=== PATIENT | male | born 1965 | race Caucasian/White ===

== ENCOUNTER 2019-04-10 10:11 | Outpatient (CLI) | payer OTHER | END 2019-04-10 10:12 | disposition critical access hospital (66) | LOC: EMS 10:11 | PROVIDERS: ATTEND Surgery | DX: R55 Syncope and collapse (principal) | CPT/HCPCS: A0425; A0429 ==

== ENCOUNTER 2019-04-10 10:31 | Emergency (ER) | payer OTHER ==
--- NOTE | 2019-04-10 11:02 | ED Physician Documentation ---
PD HPI SYNCOPE - Stated complaint Stated Complaint: NEAR SYNCOPE - Chief complaint Chief Complaint: Cardiac - History obtained from History obtained from: Patient - History of Present Illness Witnessed: Witnessed Timing - onset: How many hours ago (1-2) Duration: Minutes (5) Preceding symptoms: Abdominal pain (he was working out at gym doing crunches and had abrupt onset of right inguinal pain/cramping. He says it hurt well and then he started to feel lightheaded, sweaty, and pale. He got up and felt like he might faint. Rested and still felt sweaty and weak. The inguinal pain improved but he was still weak feeling for about 5 minutes. He then felt back to normal. No chest pain nor abd pain subsequently.) Associated symptoms: Dyspnea, Nausea / vomiting (nausea but no vomiting), Abdominal pain. No: Headache Contributing factors: Noxious stimulae (onset of symptoms started with cramping right inguinal pain while doing crunches in the gym.). No: Decreased PO intake Similar symptoms before: Has not had sx before Recently seen: Not recently seen Review of Systems Constitutional: denies: Fever Nose: denies: Rhinorrhea / runny nose, Congestion Throat: denies: Sore throat Cardiac: denies: Palpitations, Pedal edema, Calf pain Respiratory: denies: Cough GI: reports: Nausea. denies: Abdominal Pain, Vomiting Neurologic: reports: Near syncope. denies: Syncope, Altered mental status, Headache PD PAST MEDICAL HISTORY - Past Medical History Cardiovascular: None Respiratory: None Neuro: CVA Endocrine/Autoimmune: None - Living Situation Living Situation: reports: With spouse/s.o. Living Arrangement: reports: At home PD ED PE NORMAL - Vitals Vital signs reviewed: Yes - General General: Alert and oriented X 3, No acute distress, Well developed/nourished - Neck Neck: Supple, no meningeal sign, No adenopathy - Cardiac Cardiac: RRR, No murmur - Respiratory Respiratory: Clear bilaterally - Abdomen Abdomen: Normal bowel sounds, Soft, Non tender, Non distended, Other (no inguinal tenderness, hernia, nor nodes. ) - Back Back: No CVA TTP - Derm Derm: Normal color, Warm and dry - Extremities Extremities: No tenderness to palpate, Normal ROM s pain, No edema, No calf tenderness / cord - Neuro Neuro: Alert and oriented X 3, physician asst 2-12 intact, No motor deficit, No sensory deficit, Normal speech Eye Opening: Spontaneous Motor: Obeys Commands Verbal: Oriented GCS Score: 15 - Psych Psych: Normal mood, Normal affect Results - Vitals Vitals: Vital Signs - 24 hr 04/10/19 04/10/19 10:50 11:52 Temperature 36.4 C L Heart Rate 72 74 Respiratory 18 14 Rate Blood Pressure 131/79 H 151/91 H O2 Saturation 99 100 Oxygen O2 Source Room air - EKG (time done) 11:02 Rate: Rate (enter#) (73) Rhythm: NSR [place]: Normal Intervals: Normal AL Ischemia: Normal ST segments. No: ST elevation c/w ischemia, ST depression - Labs Labs: Laboratory Tests 04/10/19 04/10/19 04/10/19 11:10 11:10 11:10 WBC 10.5 RBC 5.24 Hgb 15.2 Hct 45.5 MCV 86.8 MCH 29.0 MCHC 33.4 RDW 12.8 Plt Count 249 MPV 9.9 Neut # (Auto) 8.5 H Lymph # (Auto) 1.2 L [place] # (Auto) 0.5 Eos # (Auto) 0.2 Baso # (Auto) 0.1 Absolute Nucleated RBC 0.00 Nucleated RBC % 0.0 Sodium 139 Potassium 3.4 L Chloride 100 L Carbon Dioxide 29 Anion Gap 10.0 BUN 15 Creatinine 1.2 Estimated GFR (MDRD) 63 L Glucose 156 H Calcium 9.3 Total Bilirubin 0.7 AST 25 ALT 39 Alkaline Phosphatase 73 Troponin I High Sens 3.3 Total Protein 7.3 Albumin 4.3 Globulin 3.0 Albumin/Globulin Ratio 1.4 Lipase 46 Urine Color Urine Clarity Urine pH Ur Specific Stella Urine Protein Urine Glucose (UA) Urine Ketones Urine Occult Blood Urine Nitrite Urine Bilirubin Urine Urobilinogen Ur Leukocyte Esterase Ur Microscopic Review Urine Culture Comments 04/10/19 11:44 WBC RBC Hgb Hct MCV MCH MCHC RDW Plt Count MPV Neut # (Auto) Lymph # (Auto) [place] # (Auto) Eos # (Auto) Baso # (Auto) Absolute Nucleated RBC Nucleated RBC % Sodium Potassium Chloride Carbon Dioxide Anion Gap BUN Creatinine Estimated GFR (MDRD) Glucose Calcium Total Bilirubin AST ALT Alkaline Phosphatase Troponin I High Sens Total Protein Albumin Globulin Albumin/Globulin Ratio Lipase Urine Color YELLOW Urine Clarity CLEAR Urine pH 6.0 Ur Specific [place] 1.010 Urine Protein NEGATIVE Urine Glucose (UA) NEGATIVE Urine Ketones NEGATIVE Urine Occult Blood NEGATIVE Urine Nitrite NEGATIVE Urine Bilirubin NEGATIVE Urine Urobilinogen 0.2 (NORMAL) Ur Leukocyte Esterase NEGATIVE Ur Microscopic Review NOT INDICATED Urine Culture Comments NOT INDICATED - Rads (name of study) chest xray Radiology: Prelim report reviewed, See rad report (normal) PD MEDICAL DECISION MAKING - ED course Complexity details: considered differential (sounds likely a vasovagal event triggered by the inguinal pain, presume muscle spasm as it does not hurt now and not tender. ), d/w patient Departure - Departure Disposition: Home, Self Care Clinical Impression: Lower abdominal pain of unknown etiology, Vasovagal near syncope Condition: Stable Record reviewed to determine appropriate education?: Yes Instructions: ED Near Syncope Vasovagal Follow-Up: VINEET VAAC MD [Primary Care Provider] - Comments: No signs of serious cause any of the near fainting. Not sure the cause of the pain that you had while working out. It may been a muscle spasm. The most likely cause of your other symptoms was a vasovagal episode related to the pain. Rest today and stay well-hydrated. Recheck if recurrent episodes of lightheadedness in the near future. Otherwise normal activity resuming tomorrow. Discharge Date/Time: 04/10/19 13:12
[2019-04-10 11:16] LABS: BASOPHILS # (AUTO) 0.1 10^3/uL (0.0-0.1); BASOPHILS % (AUTO) 0.5 %; EOSINOPHILS # (AUTO) 0.2 10^3/uL (0.0-0.7); EOSINOPHILS % (AUTO) 1.4 %; HGB - HEMOGLOBIN 15.2 g/dL (14.0-18.0); LYMPHOCYTES # (AUTO) 1.2 10^3/uL (1.5-3.5); LYMPHOCYTES % (AUTO) 11.3 %; MEAN CORPUSCULAR HGB CONC 33.4 g/dL (32.0-36.0); MEAN CORPUSCULAR VOLUME 86.8 fL (80.0-94.0); MEAN PLATELET VOLUME 9.9 fL (7.4-11.4); MONOCYTES # (AUTO) 0.5 10^3/uL (0.0-1.0); MONOCYTES % (AUTO) 4.8 %; NEUTROPHILS # (AUTO) 8.5 10^3/uL (1.5-6.6); NEUTROPHILS % (AUTO) 81.5 %; PLT - PLATELET COUNT 249 10^3/uL (130-450); RED BLOOD COUNT 5.24 10^6/uL (4.70-6.10); RED CELL DISTRIBUTION WIDTH 12.8 % (12.0-15.0); WHITE BLOOD COUNT 10.5 x10^3/uL (4.8-10.8)
[2019-04-10 11:36] LABS: ALBUMIN 4.3 g/dL (3.2-5.5); ALBUMIN/GLOBULIN RATIO 1.4 (1.0-2.2); BILIRUBIN,TOTAL 0.7 mg/dL (0.2-1.0); CALCIUM 9.3 mg/dL (8.5-10.3); CREATININE 1.2 mg/dL (0.6-1.2); TOTAL PROTEIN 7.3 g/dL (6.7-8.2)
[2019-04-10 11:56] LABS: BILIRUBIN,URINE NEGATIVE (NEGATIVE); CLARITY,URINE CLEAR (CLEAR); GLUCOSE, URINE (UA) NEGATIVE (NEGATIVE); KETONES,URINE (UA) NEGATIVE (NEGATIVE); LEUKOCYTE ESTERASE, URINE NEGATIVE (NEGATIVE); NITRITE,URINE NEGATIVE (NEGATIVE); OCCULT BLOOD,URINE NEGATIVE (NEGATIVE); PROTEIN,URINE NEGATIVE (NEGATIVE); UROBILINOGEN,URINE 0.2 (NORMAL) E.U./dL (NORMAL)
[2019-04-10 12:00] VITALS: BP 151/91
--- NOTE | 2019-04-10 12:04 | XRAY Report ---
Reason: chest pain Procedure Date: 04/10/2019 Accession Number: [id number] / [id number] Procedure: XR - Chest 1 View X-Ray CPT Code: 55417 FULL RESULT: EXAM: CHEST RADIOGRAPHY EXAM DATE: 04/10/2019 11:27 AM. CLINICAL HISTORY: Chest pain. COMPARISON: None. TECHNIQUE: 1 view. FINDINGS: Lungs/Pleura: No focal opacities evident. No pleural effusion. No pneumothorax. Mediastinum: Within exam limitations, the cardiomediastinal contour is normal. Other: None. IMPRESSION: Normal single view chest. RADIA
== END 2019-04-10 13:12 | disposition home or self-care (01) ==
LOC: EDUNIT# → ED 10:31
DX: R55 Syncope and collapse (principal); R10.31 Right lower quadrant pain; R11.0 Nausea
CPT/HCPCS: 36415; 71045; 80053; 81001; 81003; 83690; 84484; 85025; 87086; 93005; 99284

== ENCOUNTER 2021-10-28 02:16 | Outpatient (CLI) | payer OTHER | END 2021-10-28 02:17 | disposition critical access hospital (66) | LOC: EMS 02:16 | DX: R55 Syncope and collapse (principal) | CPT/HCPCS: A0425; A0427 ==

== ENCOUNTER 2021-10-28 02:31 | Emergency (ER) | payer OTHER ==
[2021-10-28] MEDS ORDERED: SODIUM CHLORIDE 0.9% 1,000 ML IV STA (02:51)
[2021-10-28 02:55] LABS: BASOPHILS # (AUTO) 0.1 10^3/uL (0.0-0.1); BASOPHILS % (AUTO) 0.6 %; EOSINOPHILS # (AUTO) 0.4 10^3/uL (0.0-0.7); EOSINOPHILS % (AUTO) 3.2 %; HGB - HEMOGLOBIN 14.9 g/dL (14.0-18.0); LYMPHOCYTES # (AUTO) 4.4 10^3/uL (1.5-3.5); LYMPHOCYTES % (AUTO) 34.3 %; MEAN CORPUSCULAR HEMOGLOBIN 29.6 pg (27.0-31.0); MEAN CORPUSCULAR HGB CONC 34.7 g/dL (32.0-36.0); MEAN CORPUSCULAR VOLUME 85.5 fL (80.0-94.0); MEAN PLATELET VOLUME 9.9 fL (7.4-11.4); MONOCYTES # (AUTO) 0.8 10^3/uL (0.0-1.0); NEUTROPHILS # (AUTO) 7.1 10^3/uL (1.5-6.6); NEUTROPHILS % (AUTO) 55.6 %; PLT - PLATELET COUNT 301 10^3/uL (130-450); RED BLOOD COUNT 5.03 10^6/uL (4.70-6.10); RED CELL DISTRIBUTION WIDTH 12.7 % (12.0-15.0); WHITE BLOOD COUNT 12.8 x10^3/uL (4.8-10.8)
[2021-10-28 03:08] LABS: ALBUMIN 3.8 g/dL (3.2-5.5); ALBUMIN/GLOBULIN RATIO 1.4 (1.0-2.2); ALKALINE PHOSPHATASE 66 IU/L (42-121); ALT ALANINE AMINOTRANSFERASE 30 IU/L (10-60); AST ASPARTATE AMINOTRANSFERASE 22 IU/L (10-42); BILIRUBIN,TOTAL 0.8 mg/dL (0.2-1.0); BUN - BLOOD UREA NITROGEN 19 mg/dL (6-20); CALCIUM 8.4 mg/dL (8.5-10.3); CARBON DIOXIDE - CO2 23 mmol/L (21-32); CHLORIDE 100 mmol/L (101-111); CREATININE 1.5 mg/dL (0.6-1.2); ETOH - ETHANOL < 5.0 mg/dL; GFR - MDRD 48 (>89); GLUCOSE 188 mg/dL (70-100); LIPASE 38 U/L (22-51); MAGNESIUM 1.7 mg/dL (1.7-2.8); POTASSIUM 3.2 mmol/L (3.5-5.0); SODIUM 136 mmol/L (135-145); TOTAL PROTEIN 6.5 g/dL (6.7-8.2)
--- NOTE | 2021-10-28 03:15 | ED Physician Documentation ---
History of Present Illness - Stated complaint Stated Complaint: SYNCOPE - Chief complaint Chief Complaint: Neuro - History obtained from History obtained from: Patient, EMS - Additonal information Additional information: Patient is a 56-year-old male presenting for evaluation after a syncopal episode this evening. He had smoked marijuana with his and was outside smoking a cigarette. He was sitting in a chair when he had the feeling of lightheadedness as if he had become too high. He then reportedly had a syncopal episode that lasted less than 1 minute.When patient came to he initially recalls not knowing who his was but a few seconds later was able to identify her. Per EMS, the reported possible seizure-like activity and patient reports losing control of his bladder during the episode.There was no reported head injury. Patient deniesAlcohol or other drug use. He reports occasional marijuana use and denies that the marijuana he use this evening was from a new supplier, or batch. Patient denies recently feeling ill. He denies headache, chest pain, difficulty breathing, abdominal pain. He did have 1 episode of emesis after this episode. Review of Systems Constitutional: denies: Fever Nose: denies: Congestion Cardiac: denies: Chest pain / pressure, Palpitations Respiratory: denies: Dyspnea, Cough GI: reports: Vomiting. denies: Abdominal Pain : denies: Dysuria Skin: denies: Rash Musculoskeletal: denies: Back pain Neurologic: reports: Syncope. denies: Head injury PD PAST MEDICAL HISTORY - Past Medical History Past Medical History: Yes Cardiovascular: Hypertension Respiratory: None Neuro: CVA Endocrine/Autoimmune: None - Past Surgical History Past Surgical History: No - Present Medications Home Medications: Ambulatory Orders Medication Instructions Recorded Confirmed Cetirizine HCl [Allergy] 10 mg PO DAILY 10/28/21 10/28/21 hydroCHLOROthiazide [Hydrodiuril] 25 mg PO DAILY 10/28/21 10/28/21 - Allergies Allergies/Adverse Reactions: Allergies Allergy/AdvReac Type Severity Reaction Status Date / Time Penicillins Allergy Edema Verified 10/28/21 02:45 Fish Containing Products AdvReac Emesis Verified 10/28/21 02:46 - Social History Does the pt smoke?: No Smoking Status: Never smoker Does the pt drink ETOH?: Yes Does the pt have substance abuse?: No - Immunizations Immunizations are current?: No - POLST Patient has POLST: No PD ED PE NORMAL - General General: Alert and oriented X 3, No acute distress, Well developed/nourished - HEENT HEENT: Atraumatic, PERRL, EOMI, Moist mucous membranes, Pharynx benign - Neck Neck: Supple, no meningeal sign, C-Spine cleared by NEXUS criteria - Cardiac Cardiac: RRR, No murmur, Strong equal pulses - Respiratory Respiratory: No respiratory distress, Clear bilaterally - Abdomen Abdomen: Normal bowel sounds, Soft, Non tender - Derm Derm: Normal color, No rash - Extremities Extremities: No edema - Neuro Neuro: Alert and oriented X 3, pail bailer 2-12 intact, No motor deficit, No sensory deficit, Normal speech Eye Opening: Spontaneous Motor: Obeys Commands Verbal: Oriented GCS Score: 15 - Psych Psych: Normal mood, Normal affect Results - Vitals Vitals: Vital Signs - 24 hr 10/28/21 10/28/21 10/28/21 02:30 02:49 03:14 Temperature 35.7 C L Heart Rate 81 80 78 Respiratory 13 17 17 Rate Blood Pressure 109/66 112/80 110/81 H O2 Saturation 96 96 96 10/28/21 10/28/21 10/28/21 03:32 03:56 04:18 Temperature 36.3 C L Heart Rate 87 84 78 Respiratory 14 17 12 Rate Blood Pressure 117/84 H 117/84 H 124/80 O2 Saturation 98 99 99 10/28/21 10/28/21 05:29 05:30 Temperature 36.1 C L Heart Rate 77 88 Respiratory 18 16 Rate Blood Pressure 134/80 H 132/80 H O2 Saturation 94 97 Oxygen O2 Source Room air - EKG (time done) 0242 Rate: Rate (enter#) (78) Rhythm: NSR Intervals: Other (QTC 492) Ischemia: No: ST elevation c/w ischemia - Labs Labs: Laboratory Tests 10/28/21 10/28/21 10/28/21 02:27 02:27 02:27 WBC 12.8 H RBC 5.03 Hgb 14.9 Hct 43.0 MCV 85.5 MCH 29.6 MCHC 34.7 RDW 12.7 Plt Count 301 MPV 9.9 Neut # (Auto) 7.1 H Lymph # (Auto) 4.4 H [place] # (Auto) 0.8 Eos # (Auto) 0.4 Baso # (Auto) 0.1 Absolute Nucleated RBC 0.00 Nucleated RBC % 0.0 Sodium 136 Potassium 3.2 L Chloride 100 L Carbon Dioxide 23 Anion Gap 13.0 BUN 19 Creatinine 1.5 H Estimated GFR (MDRD) 48 L Glucose 188 H Calcium 8.4 L Magnesium 1.7 Total Bilirubin 0.8 AST 22 ALT 30 Alkaline Phosphatase 66 Troponin I High Sens 3.3 Total Protein 6.5 L Albumin 3.8 Globulin 2.7 Albumin/Globulin Ratio 1.4 Lipase 38 Ethyl Alcohol < 5.0 10/28/21 05:05 WBC RBC Hgb Hct MCV MCH MCHC RDW Plt Count MPV Neut # (Auto) Lymph # (Auto) [place] # (Auto) Eos # (Auto) Baso # (Auto) Absolute Nucleated RBC Nucleated RBC % Sodium Potassium Chloride Carbon Dioxide Anion Gap BUN Creatinine Estimated GFR (MDRD) Glucose Calcium Magnesium Total Bilirubin AST ALT Alkaline Phosphatase Troponin I High Sens 2.9 Total Protein Albumin Globulin Albumin/Globulin Ratio Lipase Ethyl Alcohol PD MEDICAL DECISION MAKING - ED course Complexity details: reviewed results, re-evaluated patient, d/w patient, d/w family ED course: 0345 - Patient's is now at the bedside. She reports that they were sitting on the porch smoking when she noticed that he had his head laid back as if he was sleeping. She tried to wake him up and was not able to she reports that he was snoringAnd taking deep breaths. She tried to shake him to wake him up and it took approximately 1 minute to awake him.She denies witnessing any seizure- like activity. She reported that she was shaking the patient but did not see any shaking movements from the patient on his own. Patient evaluated after a syncopal episode. Initial history was unclear and there was a description of possible seizure episode therefore a head CT was obtained. Head CT is negative for bleed or mass. However after further conversation with patient's I do not feel that the episode this evening truly suggests a seizure. Patient's EKG demonstrates a sinus rhythm with no other signs of arrhythmia. 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 Labs reviewed with mild hypokalemia. Troponin negative x2. Patient remained symptom-free in the emergency department.Based on the [place] syncope rule patient is considered low risk for syncope and [facility] Patient is aware of return precautionsAnd is ambulatory at discharge. Departure - Departure Disposition: 01 Home, Self Care Clinical Impression: Syncope Qualifiers: Syncope type: unspecified Qualified Code(s): R55 - Syncope and collapse Condition: Stable Instructions: ED Fainting Unkn Cause Comments: Sriram strong were evaluated after a fainting episode. The exact cause of your episode is unclear at this time. After talking further with your I do not think you had a true seizure event. However I do think you need very close follow-up with your primary care doctor. Please avoid any mind altering anton bstances such as alcohol or marijuana until you are seen for follow-up. Please continue to stay hydrated and get plenty of rest over the next few days. If anytime you have any recurrent episodes, develop new symptoms such as chest pain or difficulty breathing or have any concerns please return to the emergency department. Discharge Date/Time: 10/28/21 05:51
[2021-10-28] MEDS ORDERED: POTASSIUM CHLORIDE 20 MEQ TABLET PO STA (05:06)
[2021-10-28 05:51] VITALS: BP 132/80
--- NOTE | 2021-10-28 07:46 | CT Report ---
PROCEDURE: HEAD WO INDICATIONS: Possible seizure TECHNIQUE: Noncontrast 4.5 mm thick angled axial sections acquired from the foramen magnum to the vertex. For r adiation dose reduction, the following was used: automated exposure control, adjustment of mA and/or kV according to patient size. COMPARISON: None. FINDINGS: Image quality: Excellent. CSF spaces: Basal cisterns are patent. No extra-axial fluid collections. Ventricles are normal in size and shape. Brain: No midline shift. No intracranial masses or hemorrhage. Mcmullen-white matter interface is norm al. Skull and face: Calvarium and visualized facial bones are intact, without suspicious lesions. Sinuses: Visualized sinuses and mastoids are clear. IMPRESSION: No acute intracranial disease process. Reviewed by: Marta Marquez MD, PhD on 10/28/2021 7:45 AM PDT Approved by: Marta Marquez MD, PhD on 10/28/2021 7:45 AM PDT Station ID: [id number]
--- NOTE | 2021-10-28 07:47 | XRAY Report ---
PROCEDURE: Chest 1 View X-Ray INDICATIONS: syncope TECHNIQUE: One view of the chest was acquired. COMPARISON: 04/10/2019. FINDINGS: Surgical changes and devices: None. Lungs and pleura: No pleural effusions or pneumothorax. Increased opacification the left lung base. Mediastinum: Mediastinal contours appear normal. Heart size is normal. Bones and chest wall: No suspicious bony lesions. Overlying soft tissues appear unremarkable. IMPRESSION: Left basilar atelectasis versus pneumonia. Reviewed by: Marta Marquez MD, PhD on 10/28/2021 7:46 AM PDT Approved by: Marta Marquez MD, PhD on 10/28/2021 7:46 AM PDT Station ID: [id number]
== END 2021-10-28 05:51 | disposition home or self-care (01) ==
LOC: EDUNIT# → ED 02:31
DX: R55 Syncope and collapse (principal)
CPT/HCPCS: 36415; 70450; 71045; 80053; 80320; 83690; 83735; 84484; 85025; 93005; 96360; 99284; A9270

== ENCOUNTER 2021-11-23 07:04 | Outpatient (CLI) | payer OTHER ==
--- NOTE | 2021-11-23 08:10 | CT Report ---
PROCEDURE: HEAD WO INDICATIONS: HIST OF TIA TECHNIQUE: Noncontrast 4.5 mm thick angled axial sections acquired from the foramen magnum to the vertex. For r adiation dose reduction, the following was used: automated exposure control, adjustment of mA and/or kV according to patient size. COMPARISON: 10/28/2021. FINDINGS: Image quality: Excellent. CSF spaces: Basal cisterns are patent. No extra-axial fluid collections. Ventricles are normal in size and shape. Brain: No midline shift. No intracranial masses or hemorrhage. Mcmullen-white matter interface is norm al. Skull and face: Calvarium and visualized facial bones are intact, without suspicious lesions. Sinuses: Visualized sinuses and mastoids are clear. IMPRESSION: CT head without acute intracranial abnormalities. Reviewed by: Wesley Calderon MD on 11/23/2021 8:08 AM PDT Approved by: Wesley Calderon MD on 11/23/2021 8:08 AM PDT Station ID: [id number]
== END 2021-11-23 07:05 | disposition home or self-care (01) ==
LOC: DI 07:04
PROVIDERS: ATTEND Family Medicine
DX: Z86.73 Personal history of transient ischemic attack (TIA), and cerebral infarction without residual deficits (principal)

== ENCOUNTER 2022-04-12 09:01 | Outpatient (CLI) | payer OTHER | END 2022-04-12 09:02 | disposition home or self-care (01) | LOC: DI 09:01 | PROVIDERS: ATTEND Family Medicine | DX: R55 Syncope and collapse (principal); I35.8 Other nonrheumatic aortic valve disorders; I51.89 Other ill-defined heart diseases | CPT/HCPCS: 93306 ==

== ENCOUNTER 2022-11-23 16:09 | Outpatient (CLI) | payer OTHER ==
--- NOTE | 2022-11-23 18:46 | Ultrasound Report ---
PROCEDURE: Head or Neck Soft Tissue INDICATIONS: THYROID NODULE TECHNIQUE: Real-time scanning was performed of the thyroid gland, with image documentation. COMPARISON: 12/22/2013 FINDINGS: Right: Thyroid lobe measures 4.6 x 1.8 x 1.8 cm, and is homogeneous in echotexture. Left: Thyroid lobe measures 3.8 x 1.6 x 1.6 cm, and is homogenous in echotexture. Isthmus: 5 mm thick. Nodule number: One Location: Right inferior pole Size: 1.4 x 1.4 x 1.1 cm, previously 1.3 x 1.4 x 1.2 cm. Composition: Solid. Echogenicity: Hypoechoic. Shape: wider than tall. Margins: Smooth (0 points). Echogenic foci: None (0 points). Total points: 4 ACR TI-RADS category: Moderately suspicious (4-6 points). Long-term stability decreases level of ana picion. IMPRESSION: 1. Stable thyroid gland with a stable solid right inferior pole nodule, presumably benign given great er than 8 year stability. ACR TI-RADS definitions and recommendations: TI-RADS 1 (benign): 0 points. FNA not needed. TI-RADS 2 (not suspicious): 2 points. FNA not needed. TI-RADS 3 (mildly suspicious): 3 points. "FNA if 2.5 cm or larger, follow up if 1.5 cm or larger (at 1, 3, and 5 years). TI-RADS 4 (moderately suspicious): 4-6 points. "FNA if 1.5 cm or larger, follow up if 1 cm or larger (at 1, 2, 3, and 5 years). TI-RADS 5 (highly suspicious): 7 points or more. "FNA if 1 cm or larger, follow up if 0.5 cm or larger (every year for 5 years). Reviewed by: Nadege Araujo MD on 11/23/2022 6:44 PM PDT Approved by: Nadege Araujo MD on 11/23/2022 6:44 PM PDT Station ID: [id number]
== END 2022-11-23 16:10 | disposition home or self-care (01) ==
LOC: DI 16:09
PROVIDERS: ATTEND Family Medicine
DX: E04.1 Nontoxic single thyroid nodule (principal)

== ENCOUNTER 2023-05-09 08:28 | Outpatient (CLI) | payer OTHER ==
--- NOTE | 2023-05-09 12:24 | MRI Report ---
PROCEDURE: HIP WO - RT INDICATIONS: R HIP PAIN TECHNIQUE: Noncontrast coronal T1 spin echo and STIR through the bony pelvis. Coronal and axial T2 fast spin ec ho with fat saturation, sagittal T1 spin echo, and oblique axial T2 fast spin echo with fat saturatio n through the hip. COMPARISON: None. FINDINGS: Image quality: Excellent. There are no significant degenerative change involving the right hip or pelvis. No para labral cyst f ormation is identified. No joint effusion is seen. Marrow signal visualized bones appears normal. There are findings consistent with a moderate the right-sided trochanteric bursitis. Musculature appears symmetric. No loculated fluid collections or soft tissue masses are seen. There is an enlarged prostate gland present. IMPRESSION: 1. Moderate right-sided trochanteric bursitis. 2. Enlarged prostate gland. Reviewed by: Sriram Knutson MD on 05/09/2023 12:23 PM PST Approved by: Sriram Knutson MD on 05/09/2023 12:23 PM PST Station ID: [id number]
== END 2023-05-09 08:29 | disposition home or self-care (01) ==
LOC: DI 08:28
PROVIDERS: ATTEND Family Medicine
DX: M70.61 Trochanteric bursitis, right hip (principal); N40.0 Benign prostatic hyperplasia without lower urinary tract symptoms